=== PATIENT | male | born 2005 | race Caucasian/White ===

== ENCOUNTER 2024-09-27 06:59 | Emergency (ER) | payer OTHER, SELFPAY ==
[2024-09-27 07:04] VITALS: BP 114/75; BMI 12.6
[2024-09-27 07:09] VITALS: BP 114/75
[2024-09-27 07:36] LABS: % Basophils 0.4 % (0-2); % Eosinophils 1.6 % (0-6); % Immature Granulocytes 0.4 % (0-0.5); % Lymphocytes 25.7 % (20.5-51.1); % Monocytes 5.7 % (1.7-9.3); % Neutrophils 66.2 % (42.2-75.2); Absolute Eosinophils 0.2 10^3/uL (0-0.7); Absolute Lymphocytes 2.6 10^3/uL (1.2-3.4); Absolute Monocytes 0.6 10^3/uL (0.1-0.6); Absolute Neutrophils 6.6 10^3/uL (1.4-6.5); Hematocrit 38.5 % (39.0-52.0); Hemoglobin 13.1 g/dL (13.0-18.0); Mean Corpuscular Hgb 30.2 pg (27.0-31.0); Mean Corpuscular Volume 88.7 fL (80.0-94.0); Mean Platelet Volume 9.7 fL (7.4-10.4); Nucleated Red Blood Cells % 0 % (-); Platelet Count 216 10^3/uL (130-400); Red Blood Cell Count 4.34 10^6/uL (4.70-6.10); Red Cell Dist. Width 11.9 % (11.5-14.5)
--- NOTE | 2024-09-27 07:37 | ED.GENMED ---
History of Present Illness
General
Chief Complaint: Fainting/Passed Out
Source: patient
Exam Limitations: none
Time Seen by Provider: 09/27/24 07:04
Nursing documentation reviewed up to this point in time: agreed with
History of Present Illness
History of Present Illness:
19-year-old male presenting to the emergency department via EMS with concerns after passing out earlier this morning. He claims that he was up all night playing video games he felt very tired lightheaded next he knows EMS is in his room. Parents
were awake when he fell just prior to arrival they heard a thud in his room luckily he fell on some clothing there is no evidence of any trauma bleeding upon awakening he denies any specific pain denies any pain currently. Denies any preceding
chest pain palpitations or shortness of breath. Did have a similar episode 1 month ago but did not seek any medical attention at the time he did take his psychiatric medications roughly 1 hour prior to the symptoms.
Past History
Past History
ED Past Medical History: None
ED Past Surgical History: None
Social History
Tobacco: Non-smoker
Alcohol: None
Drug: None
Employment: Employed
Review of Systems
Review of Systems
Allergies reviewed?: Yes
All Other Systems: ROS reviewed and negative except as documented in HPI and ROS
Phy Exam
Physical Exam
Physical Exam:
GENERAL: Alert , in no apparent distress
EYE: pupils equal and reactive
NECK: Supple, no significant adenopathy.
ENT: o/p clr, mmm.
CARDIAC: Regular rate and rhythm .
LUNGS: Clear breath sounds bilaterally, no acute respiratory distress, no wheezes/rales/rhonchi
ABDOMEN: Soft, without focal tenderness, no r/g, no cvat
NEUROLOGICAL: Alert and oriented, no focal neuro deficits 5 out of 5 upper and lower extremity strength normal sensation with palpating bilaterally [id number] no pronator drift
SKIN: Warm and dry, skin intact.
MUSCULOSKELETAL: No edema, well perfused.
PSYCH: Normal and appropriate interaction.
Course
Orders/Labs/Results
Orders:
Orders
09/27/24 07:17
Electrocardiogram (*1) Urgent
Reason for Study: Syncope
09/27/24 07:18
EKG- Treatment ONCE
09/27/24 07:25
Complete Blood Count/With Diff Urgent
Troponin I Urgent
Urinalysis Reflex To Culture Urgent
Date Specimen was Collected: 09/27/24
Time Specimen was Collected: 07:18
09/27/24 07:26
CMP [Comprehensive Metabolic Panel] Urgent
09/27/24 07:45
Urine Drug Abuse Screen Urgent
Date Specimen was Collected: 09/27/24
Time Specimen was Collected: 07:18
Abnormal Lab Results
09/27/24 09/27/24 09/27/24
07: 07:26 07:45
RBC 4.34 L 10^6/uL
(4.70-6.10)
Hct 38.5 L %
(39.0-52.0)
Absolute Neuts (auto) 6.6 H 10^3/uL
(1.4-6.5)
Glucose 101 H mg/dl
(70-99)
U Marijuana (THC) Screen Positive H
(Negative)
09/27/24 07:25
09/27/24 07:26
Vital Signs
Initial and Last Documented VS:
Initial Vital Signs
Temp Pulse Resp BP Pulse Ox
98.2 F 72 18 114/75 98
09/27/24 07:04 09/27/24 07:04 09/27/24 07:04 09/27/24 07:04 09/27/24 07:04
Last Documented Vital Signs
Temp Pulse Resp BP Pulse Ox
98.2 F 66 16 107/71 97
09/27/24 07:04 09/27/24 11:03 09/27/24 11:03 09/27/24 11:03 09/27/24 08:30
MDM/Problems Addressed
MDM/Problems Addressed:
19-year-old male presenting to the emergency department after an episode where passed out. No evidence of trauma on examination no pain at this point pain palpitations or shortness of breath proceeding. Did feel lightheaded and that he was falling
asleep just prior to the onset of symptoms. He was up throughout the night playing video games. Patient does take multiple psychiatric medications. On arrival here vital signs are normal. Patient no distress normal neurologic evaluation normal
heart and lung exam. Labs unremarkable. Patient well-appearing throughout ER stay. Case discussed with neurology that did not feel this seemed to be consistent with seizure and did not recommend any further testing. Cardiology recommended
outpatient follow-up. Otherwise stable for outpatient management return precautions given.
*Critical Care Note
Total Time (30-74mins, 75-104mins- exclusive of procedures): Not Applicable
ED Attending Note
-
Portions of this chart may have been created with voice recognition software.� Occasional wrong word or��sound alike� substitutions may have occurred due to the inherent limitations of voice recognition software.
Discharge Plan
Departure
Patient Disposition: Home (Routine Discharge)
Date of Disposition: 09/27/24
Time of Disposition: 11:46
Patient with high blood pressure during this ER visit?: No
Condition: Good
Covid-19: Not Applicable
Discharge Problem:
Syncope
Instructions: Syncope (Fainting) (DC)
Prescriptions:
No Action
amoxicillin-pot clavulanate 400 MG/5 ML suspension for reconstitution
400 mg PO BID Qty: 100 0RF
Referrals:
Neeraj Alcala, DO [Active] - Follow up in 5-7 days
NONE,* [Family Provider] -
Activity Restrictions/Additional Instructions:
You came to the emergency department today with concerns of passing out. Here he had a reassuring assessment. Please help closely with cardiology. Return for any worsening, new or concerning symptoms.
Interventions
Interventions:
*Risk Screen - Suicide Last Done: 09/27/24 07:04
*General Assessment Last Done: 09/27/24 07:04
*Neglect/Abuse Screening Last Done: 09/27/24 07:04
*ED COVID-19 Vaccine History Last Done: 09/27/24 07:04
ED- Cardiac Assessment Last Done: 09/27/24 07:04
ED- Neurological Assessment Last Done: 09/27/24 07:04
Discharge Date and Time
Print Language: COMORAN
[2024-09-27 07:53] LABS: ALT (SGPT) 14 U/L (0-50); AST (SGOT) 21 U/L (17-59); Albumin 4.7 g/dl (3.5-5.0); Alkaline Phosphatase 65 U/L (38-126); Blood Urea Nitrogen 9 mg/dl (9-20); Calcium 8.8 mg/dl (8.4-10.2); Carbon Dioxide 25 mmol/L (22-30); Chloride 103 mmol/L (98-107); Estimated Creatinine Clearance 98 ml/min; Glucose 101 mg/dl (70-99); Potassium 3.5 mmol/L (3.5-5.1); Sodium 139 mmol/L (135-145); Total Bilirubin 0.5 mg/dl (0.2-1.3); Total Protein 7.3 g/dl (6.3-8.2); eGFR > 60.00
[2024-09-27 07:58] LABS: Urine Albumin Negative (Neg - Trace); Urine Bilirubin Negative (Negative); Urine Character Clear (Clear); Urine Color Yellow; Urine Glucose Negative (Negative); Urine Ketone Negative (Negative); Urine Leukocyte Negative (Negative); Urine Nitrite Negative (Negative); Urine Occult Blood Negative (Negative); Urine Urobilinogen Negative (Neg - 1+)
[2024-09-27 08:00] VITALS: BP 125/81
[2024-09-27 08:09] LABS: Troponin I < 0.012 ng/ml
[2024-09-27 09:00] VITALS: BP 106/67
[2024-09-27 09:54] LABS: Amphetamines Negative (Negative); Barbiturates Negative (Negative); Benzodiazepines Negative (Negative); Buprenorphine Negative (Negative); Cocaine Negative (Negative); Marijuana Positive (Negative); Methadone Negative (Negative); Methamphetamines Negative (Negative); Opiates Negative (Negative); Phencyclidine Negative (Negative); Tricyclic Antidepressants Negative (Negative)
[2024-09-27 10:00] VITALS: BP 101/60
[2024-09-27 11:03] VITALS: BP 107/71
== END 2024-09-27 11:59 | disposition home or self-care (01) ==
LOC: EMR 06:59
PROVIDERS: Physician Assistant; EMERGENCY PHYSICIAN Emergency Medicine
DX: R55 Syncope and collapse (principal)
CPT/HCPCS: 99283; 80053; 80306; 81003; 84484; 85025; 93005